=== PATIENT | male | born 1950 | race Caucasian/White ===

== ENCOUNTER → 2016-11-24 | Outpatient (CLI) | payer OTHER ==
[~2016-11-24] MED LIST: ADVAIR 250/501 DISK IH; ALBUTEROL SULF8.5 GM IH; ALBUTEROL0.63 MG/3 IH; AVODART0.5 MG PO; CARBIDOPA/LEVO1 EACH PO; ESCITALOPRAM OX10 MG PO; HYDROCHLOROTHIA50 MG PO; HYTRIN5 MG PO; LISINOPRIL40 MG PO; LOPRESSOR50 MG PO; METFORMIN HCL500 MG PO; MOTRIN600 MG PO; PRAVASTATIN SOD40 MG PO; SPIRIVA1 INHALATI IH; THEO-DUR,THEOC200 MG PO
== END | disposition home or self-care (01) ==
LOC: NUC 10-20 09:00
DX: R94.02 Abnormal brain scan (principal)
CPT/HCPCS: 78607; A9584